=== PATIENT | male | born 1995 | race Two or more races ===

== ENCOUNTER → 2021-11-16 | Emergency (ER) | payer SELFPAY ==
[~2021-11-16] VITALS: Ht 172.7 cm; Wt 71.9 kg
[2021-11-16 14:10] VITALS: BP 120/81
== END | disposition left against medical advice (07) ==
LOC: ER 13:58
DX: M25.571 Pain in right ankle and joints of right foot (principal); Z53.21 Procedure and treatment not carried out due to patient leaving prior to being seen by health care provider; W19.XXXA Unspecified fall, initial encounter; Y93.89 Activity, other specified; Y92.89 Other specified places as the place of occurrence of the external cause; Y99.8 Other external cause status
CPT/HCPCS: 73610; 73620